=== PATIENT | female | born 1950 | race Hispanic/Latino ===

== ENCOUNTER 2016-11-03 08:29 | Outpatient (CLI) | payer MEDICARE ==
[2016-11-03 08:52] LABS: Blood Urea Nitrogen 15 mg/dL (7-17)
--- NOTE | 2016-11-06 09:09 | Cat Scan Report ---
CTA abdomen pelvis, lower extremities: Claudication. Following IV ministration of contrast transverse images are obtained from the lung base to the feet. Coronal and sagittal 2-D reformatted images with 3-D MIP image included. There are bilateral small pleural effusions. There is a small calculus overlying the anterior gallbladder wall at the fundus. There is a 7 mm calculus and a possibly smaller additional calculus in the lower pole of the right kidney. No evidence of obstruction. The suprarenal abdominal aorta contains scattered mural calcification with normal disc contour and diameter. There are patient celiac SMA and single bilateral renal arteries. The infrarenal abdominal aorta also contains a somewhat heavier volume of mural calcification but no significant narrowing or dilatation of the lumen. The bifurcation although patent is heavily calcified as are the common iliac arteries. Both arteries appear adequately patent. There are normal iliac bifurcations and external iliac and common femoral arteries. Right lower extremity: There is an unremarkable bifurcation of the common femoral artery. The SFA, popliteal, and common peroneal arteries are patent. There is a patent trifurcation. The posterior tibial artery is continuously patent to the foot. The anterior tibial artery is patent to the ankle but appears to significantly narrow as it courses into the foot. The peroneal artery is patent almost to the ankle. Left lower extremity: The common femoral artery has a normal bifurcation. The SFA, popliteal, and common peroneal arteries are patent. There is a patent trifurcation. The posterior tibial artery although patent to the foot appears to be somewhat narrowed throughout. The anterior tibial artery is patent to the foot. The peroneal artery is patent to the ankle. Impressions: 1. Diffuse vascular atherosclerosis of the aorta and iliac vessels but no significant stenosis. 2. Mild compromise of runoff vessels as detailed above. 3. Nonobstructing right renal calculi. 4. Gallbladder wall versus lumen calculus.
== END 2016-11-03 08:30 | disposition home or self-care (01) ==
LOC: CT 08:29
PROVIDERS: ATTEND Surgery Vascular Surgery
DX: I70.213 Atherosclerosis of native arteries of extremities with intermittent claudication, bilateral legs (principal)
CPT/HCPCS: 36415; 75635; 82565; 84520; Q9967